=== PATIENT | male | born 1985 | race Caucasian/White ===

== ENCOUNTER 2017-01-24 15:01 | Emergency (ER) | payer OTHER ==
[2017-01-24 15:20] VITALS: RESP 16
[2017-01-24 15:32] LABS: % IMMATURE GRANULYOCYTES 0.3 % (0.0-1.1); ABSOLUTE IMMATURE GRANULOCYTES 0.03 10^3/uL (0.00-0.10); ADD DIFF? NO; ADD MORPH? NO; ADD SCAN? NO; ATYPICAL LYMPHOCYTE FLAG 10 (0-99); FRAGMENT RBC FLAG 0 (0-99); HEMATOCRIT 40.4 % (40.0-51.0); HEMOGLOBIN 13.7 g/dL (13.7-17.5); LEFT SHIFT FLG 0 (0-99); LIPEMIA HEMOLYSIS FLAG 90 (0-99); MEAN CELL HEMOGLOBIN CONCENTR. 33.9 g/dL (32.4-36.7); MEAN CELL VOLUME 88.4 fL (81.5-99.8); PLATELET CLUMPS FLAG 0 (0-99); PLATELET COUNT 256 10^3/uL (150-400); RED BLOOD CELL COUNT 4.57 10^6/uL (4.40-6.38); RED CELL DISTRIBUTION WIDTH 13.2 % (11.5-15.2)
--- NOTE | 2017-01-24 15:32 | EDPHY ---
H & P Smoking Status: Current every day smoker Time Seen by Provider: 01/24/17 15:13 HPI/ROS: HPI Suicidal ideation. 31-year-old male by [employer] on an M1 hold. Please called with complaint that he felt suicidal. Patient has a history of polysubstance abuse including heroin abuse. He has a history of schizophrenia, depression and hepatitis-C. He told police he felt hopeless and was planning on pursuing some heroin and overdosing on heroin. Patient denies any specific inciting incident that led him to be suicidal. He states that he is just unhappy with his life. ROS: Constitutional: No fever, no chills. No weakness. Eyes: No discharge. No changes in vision. ENT: No sore throat. No nasal congestion or rhinorrhea. Respiratory: No cough. No shortness of breath. Cardiac: No chest pain, no palpitations. Gastrointestinal: No abdominal pain, no vomiting, no diarrhea. Genitourinary: No hematuria. No dysuria or increased frequency with urination. Musculoskeletal: No back pain. No neck pain. No myalgias or arthralgias. Skin: No rashes. Neurological: No headache. No focal weakness or altered sensation. Past medical history: Hepatitis-C, schizophrenia, depression, polysubstance abuse. Social history: Alcohol abuse, heroin abuse, smokes marijuana and cigarettes. Here by himself. Physical Exam: General Appearance: Alert, no distress. Eating a sandwich. This patient is responding to questions appropriately and in full sentences. This patient appears well-hydrated and well-nourished. Eyes: Pupils equal and round no pallor or injection. No lid edema, erythema or injection. Respiratory: There are no retractions, lungs are clear to auscultation with good air movement bilaterally. Cardiovascular: Regular rate and rhythm. No murmur. Gastrointestinal: Abdomen is soft and nontender, no masses, bowel sounds normal. No focal tenderness at McBurney's point. No Salazar sign. Neurological: Motor sensory function is grossly intact. Cranial nerves are normal. Gait is normal. Skin: Warm and dry, no rashes. Musculoskeletal: Neck is supple and nontender. Extremities are symmetrical. All joints range without pain or impingement. Psychiatric: No agitation. Flat affect. Database: EKG: Imaging: Procedures: Emergency department course: Patient medically cleared at 3:30 p.m.. Appropriate blood work sent. He awaits behavioral health evaluation. 4:00 p.m., laboratory work and tox screens reviewed by myself. Unremarkable except a positive for marijuana. Patient awaiting behavioral health evaluation. 11:00 p.m., patient has still not been evaluated by Behavioral Health. This is supposed to occur shortly. Care turned over to Dr. Subha Rizvi at this time. Differential Diagnosis: The differential diagnosis on this patient includes but is not limited to situational depression, major depression, schizophrenia, suicidal ideation. This represents a partial list of diagnoses considered. These considerations are based on history, physical exam, past history, reassessment and diagnostic testing. (Milli Tavera) Constitutional: Initial Vital Signs Temperature (C) 36.7 C 01/24/17 15:01 Heart Rate 73 01/24/17 15:01 Respiratory Rate 16 01/24/17 15:01 Blood Pressure 113/71 01/24/17 15:01 O2 Sat (%) 94 01/24/17 15:01 O2 Delivery Mode Room Air Allergies/Adverse Reactions: sulfamethoxazole [From Bactrim] Allergy (Verified 01/24/17 15:07) trimethoprim [From Bactrim] Allergy (Verified 01/24/17 15:07) Home Medications: Medication Instructions Recorded Desmopressin 01/24/17 [place] Carbonate 01/24/17 Paliperidone 01/24/17 Medical Decision Making ED Course/Re-evaluation: 12:00 a.m.- The patient has remained stable during my shift. He was evaluated by the mental health worker Madonna who discussed the case with the on-call psychiatrist Dr. Crowell. The patient is not actively suicidal and does not meet criteria for M1 hold. He apparently does not have a history of schizophrenia as he initially reported. He does not have a place to stay and is not [facility] because he was positive for benzodiazepines. He is frustrated by his social situation. Madonna has provided resources to him it is recommended that he go to [facility]. (Subha Rizvi) - Data Points Laboratory Results: Laboratory Results 01/24/17 15:15 01/24/17 15:15 01/24/17 01/24/17 01/24/17 15:15 15:15 15:15 WBC 9.56 10^3/uL H 10^3/uL (3.80-9.50) RBC 4.57 10^6/uL 10^6/uL (4.40-6.38) Hgb 13.7 g/dL g/dL (13.7-17.5) Hct 40.4 % % (40.0-51.0) MCV 88.4 fL fL (81.5-99.8) MCH 30.0 pg pg (27.9-34.1) MCHC 33.9 g/dL g/dL (32.4-36.7) RDW 13.2 % % (11.5-15.2) Plt Count 256 10^3/uL 10^3/uL (150-400) MPV 10.0 fL fL (8.7-11.7) Neut % (Auto) 64.5 % % (39.3-74.2) Lymph % (Auto) 26.7 % % (15.0-45.0) Summers % (Auto) 6.1 % % (4.5-13.0) Eos % (Auto) 2.0 % % (0.6-7.6) Baso % (Auto) 0.4 % % (0.3-1.7) Nucleat RBC Rel Count 0.0 % % (0.0-0.2) Absolute Neuts (auto) 6.17 10^3/uL 10^3/uL (1.70-6.50) Absolute Lymphs (auto) 2.55 10^3/uL 10^3/uL (1.00-3.00) Absolute Monos (auto) 0.58 10^3/uL 10^3/uL (0.30-0.80) Absolute Eos (auto) 0.19 10^3/uL 10^3/uL (0.03-0.40) Absolute Basos (auto) 0.04 10^3/uL 10^3/uL (0.02-0.10) Absolute Nucleated RBC 0.00 10^3/uL 10^3/uL (0-0.01) Immature Gran % 0.3 % % (0.0-1.1) Immature Gran # 0.03 10^3/uL 10^3/uL (0.00-0.10) Sodium 142 mEq/L mEq/L (134-144) Potassium 3.9 mEq/L mEq/L (3.5-5.2) Chloride 105 mEq/L mEq/L (97-110) Carbon Dioxide 25 mEq/l mEq/l (22-31) Anion Gap 12 mEq/L mEq/L (8-16) BUN 9 mg/dL mg/dL (7-23) Creatinine 1.0 mg/dL mg/dL (0.7-1.3) Estimated GFR > 60 Glucose 76 mg/dL mg/dL (70-100) Calcium 9.4 mg/dL mg/dL (8.5-10.4) Urine Opiates Screen NEGATIVE (NEGATIVE) Urine Barbiturates NEGATIVE (NEGATIVE) Ur Phencyclidine Scrn NEGATIVE (NEGATIVE) Ur Amphetamine Screen NEGATIVE (NEGATIVE) U Benzodiazepines Scrn NEGATIVE (NEGATIVE) Urine Cocaine Screen NEGATIVE (NEGATIVE) U Marijuana (THC) Screen NON-NEGATIVE H (NEGATIVE) Ethyl Alcohol < 10 mg/dL mg/dL (0-10) Departure - Departure Disposition: Home, Routine, Self-Care Clinical Impression: Mood disorder, Polysubstance abuse Condition: Good Instructions: Polysubstance Abuse (ED) Referrals: [facility] Hours [Outside] - As per Instructions
[2017-01-24 15:49] LABS: ANION GAP 12 mEq/L (8-16); CALCIUM 9.4 mg/dL (8.5-10.4); CARBON DIOXIDE 25 mEq/l (22-31); CHLORIDE 105 mEq/L (97-110); ETHANOL SERUM < 10 mg/dL (0-10); GLOMERULAR FILTRATION RATE > 60; GLUCOSE 76 mg/dL (70-100); POTASSIUM 3.9 mEq/L (3.5-5.2); SODIUM 142 mEq/L (134-144)
[2017-01-24 23:14] VITALS: O2SAT 96
[2017-01-25 00:39] VITALS: BP 123/64; PULSE 71; TEMP 97.9
== END 2017-01-25 00:55 | disposition home or self-care (01) ==
DX: F19.10 Other psychoactive substance abuse, uncomplicated (principal); F39 Unspecified mood [affective] disorder; F17.200 Nicotine dependence, unspecified, uncomplicated
CPT/HCPCS: 80305; G0480